=== PATIENT | female | born 1985 | race African-American/Black ===

== ENCOUNTER 2021-05-21 19:18 | Emergency (ER) | payer OTHER ==
[~2021-05-21] VITALS: Ht 160 cm; Wt 70.3 kg
[2021-05-21 19:38] VITALS: BP 125/84
[2021-05-21 19:59] LABS: BASOPHILS % (AUTO) 0.2 % (0.0-2.0); EOSINOPHILS # (AUTO) 0.1 K/uL (0-0.4); EOSINOPHILS % (AUTO) 1.1 % (0.0-4.0); HEMATOCRIT 35.5 % (36-48); HEMOGLOBIN 11.9 g/dL (12.0-16.0); LYMPHOCYTES # (AUTO) 2.2 K/uL (2.5-16.5); LYMPHOCYTES % (AUTO) 20.8 % (20.5-51.1); MEAN CORPUSCULAR HEMOGLOBIN 31 pg (27-31); MEAN CORPUSCULAR HGB CONC 34 g/dL (33-37); MEAN CORPUSCULAR VOLUME 93.2 fL (80-94); MONOCYTES # (AUTO) 0.5 K/uL (0.8-1.0); MONOCYTES % (AUTO) 4.7 % (1.7-9.3); NEUTROPHILS # (AUTO) 7.6 K/uL (1.8-7.7); NEUTROPHILS % (AUTO) 73.2 % (42.2-75.2); PLATELET COUNT (AUTO) 263 K/uL (140-450); RED BLOOD CELL COUNT(AUTO) 3.81 MIL/uL (4.20-5.40); RED CELL DISTRIBUTION WIDTH 13.3 % (11.6-13.7); WHITE BLOOD COUNT (AUTO) 10.4 K/uL (4.8-10.8)
--- NOTE | 2021-05-21 20:00 | NUR ---
MONROY EXAMINING PT IN TRIAGE, AB 0
--- NOTE | 2021-05-21 20:46 | NUR ---
PT GIVEN URINE CUP AND AMBULATED TO RESTROOM WITH STEADY GAIT
[2021-05-21 21:00] LABS: APPEARANCE,URINE CLEAR (CLEAR); BILIRUBIN,URINE NEGATIVE (NEGATIVE); BLOOD, URINE 1+ (NEGATIVE); COLOR,URINE YELLOW (YELLOW); LEUKOCYTE ESTERASE ,URINE NEGATIVE (NEGATIVE); NITRITE, URINE NEGATIVE (NEGATIVE); UGLUCOSE NEGATIVE (NEGATIVE)
[2021-05-21 21:10] LABS: RBC,URINE 0-5 /HPF (0-5); WBC,URINE 0-5 /HPF (0-5)
[2021-05-21 22:52] VITALS: BP 128/72
--- NOTE | 2021-05-21 22:56 | NUR ---
PATIENT DC HOME STABLE VITALS SIGNS IN NORMAL LIMITS ALL DC INSTRUCTION GAVE AND EXPLAINED //Jon RN
== END 2021-05-21 22:56 | disposition home or self-care (01) ==
LOC: MED 19:18
DX: O46.8X1 Other antepartum hemorrhage, first trimester (principal); Z3A.01 Less than 8 weeks gestation of pregnancy
CPT/HCPCS: 36415; 76817; 81001; 81025; 84702; 85025; 86900; 86901; 99284; Q0092

== ENCOUNTER 2021-05-31 16:40 | Emergency (ER) | payer OTHER ==
[~2021-05-31] VITALS: Ht 160 cm; Wt 72.6 kg
[2021-05-31 17:08] VITALS: BP 127/69
--- NOTE | 2021-05-31 19:02 | NUR ---
PT AMBULATED TO CHAIR C
[2021-05-31 19:42] LABS: APPEARANCE,URINE CLEAR (CLEAR); BILIRUBIN,URINE NEGATIVE (NEGATIVE); BLOOD, URINE NEGATIVE (NEGATIVE); COLOR,URINE YELLOW (YELLOW); LEUKOCYTE ESTERASE ,URINE TRACE (NEGATIVE); NITRITE, URINE NEGATIVE (NEGATIVE); PH,URINE 5.5 (5.0-9.0); UGLUCOSE NEGATIVE (NEGATIVE)
[2021-05-31 20:08] LABS: RBC,URINE NONE SEEN /HPF (0-5)
[2021-05-31 20:09] LABS: WBC,URINE 0-5 /HPF (0-5)
[2021-05-31] MEDS ORDERED: ACETAMINOPHEN 325 MG TAB PO ONE (21:05)
[2021-05-31] MEDS ORDERED: HYDROcodone/APAP 5/325 MG 1 TAB TAB PO ONE (21:05)
[2021-05-31] MEDS ORDERED: MORPHINE SULFATE 4 MG/ML SYR IM ONE (21:10)
[2021-05-31 21:16] LABS: BASOPHILS % (AUTO) 0.6 % (0.0-2.0); EOSINOPHILS % (AUTO) 0.5 % (0.0-4.0); HEMATOCRIT 35.8 % (36-48); LYMPHOCYTES # (AUTO) 0.2 K/uL (2.5-16.5); LYMPHOCYTES % (AUTO) 4.2 % (20.5-51.1); MEAN CORPUSCULAR HEMOGLOBIN 31 pg (27-31); MEAN CORPUSCULAR HGB CONC 34 g/dL (33-37); MEAN CORPUSCULAR VOLUME 92.9 fL (80-94); MONOCYTES # (AUTO) 0.7 K/uL (0.8-1.0); MONOCYTES % (AUTO) 13.7 % (1.7-9.3); NEUTROPHILS # (AUTO) 4.1 K/uL (1.8-7.7); PLATELET COUNT (AUTO) 196 K/uL (140-450); RED BLOOD CELL COUNT(AUTO) 3.86 MIL/uL (4.20-5.40); RED CELL DISTRIBUTION WIDTH 13.3 % (11.6-13.7)
[2021-05-31] MEDS ORDERED: ACET-8386 PO (21:48)
[2021-05-31] MEDS ORDERED: NITR100C7 PO (21:48)
--- NOTE | 2021-05-31 22:10 | NUR ---
d/c with VSS. d/c education given. opportunity to ask questions given and answered. rx of macrobid and tylenol given.
[2021-05-31 22:11] VITALS: BP 133/71
== END 2021-05-31 22:10 | disposition home or self-care (01) ==
LOC: MED 16:40
DX: O23.41 Unspecified infection of urinary tract in pregnancy, first trimester (principal); O26.891 Other specified pregnancy related conditions, first trimester; M54.50 Low back pain, unspecified; Z79.899 Other long term (current) drug therapy; Z3A.08 8 weeks gestation of pregnancy; Z88.6 Allergy status to analgesic agent
CPT/HCPCS: 36415; 76817; 81001; 81025; 84702; 85025; 86900; 86901; 96372; 99284; J2270

== ENCOUNTER 2022-03-19 19:18 | Emergency (ER) | payer OTHER ==
[~2022-03-19] VITALS: Ht 165.1 cm; Wt 86.2 kg
[~2022-03-19 19:18] MED LIST: ACET-8386 PO; NITR100C7 PO
[2022-03-19 20:33] VITALS: BP 132/88
[2022-03-19 22:21] LABS: BASOPHILS # (AUTO) 0.1 K/uL (0.00-0.22); BASOPHILS % (AUTO) 0.6 % (0.0-2.0); EOSINOPHILS # (AUTO) 0.2 K/uL (0-0.4); EOSINOPHILS % (AUTO) 2.4 % (0.0-4.0); HEMATOCRIT 35.3 % (36-48); HEMOGLOBIN 11.9 g/dL (12.0-16.0); LYMPHOCYTES # (AUTO) 1.9 K/uL (2.5-16.5); LYMPHOCYTES % (AUTO) 21.9 % (20.5-51.1); MEAN CORPUSCULAR HEMOGLOBIN 30 pg (27-31); MEAN CORPUSCULAR HGB CONC 34 g/dL (33-37); MEAN CORPUSCULAR VOLUME 89.8 fL (80-94); MONOCYTES # (AUTO) 0.6 K/uL (0.8-1.0); MONOCYTES % (AUTO) 6.6 % (1.7-9.3); NEUTROPHILS % (AUTO) 68.5 % (42.2-75.2); PLATELET COUNT (AUTO) 275 K/uL (140-450); RED BLOOD CELL COUNT(AUTO) 3.93 MIL/uL (4.20-5.40); RED CELL DISTRIBUTION WIDTH 14.4 % (11.6-13.7); WHITE BLOOD COUNT (AUTO) 8.8 K/uL (4.8-10.8)
[2022-03-19 22:55] LABS: APPEARANCE,URINE CLEAR (CLEAR); BILIRUBIN,URINE NEGATIVE (NEGATIVE); BLOOD, URINE 2+ (NEGATIVE); COLOR,URINE YELLOW (YELLOW); LEUKOCYTE ESTERASE ,URINE 1+ (NEGATIVE); NITRITE, URINE NEGATIVE (NEGATIVE); PH,URINE 6.5 (5.0-9.0); UGLUCOSE NEGATIVE (NEGATIVE)
[2022-03-19] MEDS ORDERED: NITR100C7 PO (23:29)
--- NOTE | 2022-03-20 00:10 | NUR ---
Dr. Ortiz explained results and treatment plans.
[2022-03-20 00:14] VITALS: BP 128/88
--- NOTE | 2022-03-20 00:14 | NUR ---
Patient discharged with v/s stable. Written and verbal after care instructions given and explained. Patient alert, oriented and verbalized understanding of instructions. Ambulatory with by parent. All questions addressed prior to discharge. ID band removed. Patient advised to follow up with PMD. Rx of Macrobid given. Patient educated on indication of medication including possible reaction and side effects. Opportunity to ask questions provided and answered.
== END 2022-03-20 00:14 | disposition home or self-care (01) ==
LOC: MED 19:18
DX: O23.41 Unspecified infection of urinary tract in pregnancy, first trimester (principal); O20.0 Threatened abortion; Z3A.01 Less than 8 weeks gestation of pregnancy; Z79.899 Other long term (current) drug therapy; Z88.6 Allergy status to analgesic agent
CPT/HCPCS: 36415; 76817; 81001; 81025; 84702; 85025; 86900; 86901; 87086; 99284; Q0092

== ENCOUNTER 2022-03-27 16:08 | Emergency (ER) | payer OTHER ==
[~2022-03-27] VITALS: Ht 165.1 cm; Wt 83.9 kg
[2022-03-27 16:24] VITALS: BP 121/87
--- NOTE | 2022-03-27 16:30 | NUR ---
PT AMB TO BED 7.
[2022-03-27 16:35] LABS: BASOPHILS # (AUTO) 0.1 K/uL (0.00-0.22); BASOPHILS % (AUTO) 0.5 % (0.0-2.0); EOSINOPHILS # (AUTO) 0.2 K/uL (0-0.4); EOSINOPHILS % (AUTO) 1.5 % (0.0-4.0); HEMATOCRIT 33.8 % (36-48); HEMOGLOBIN 11.4 g/dL (12.0-16.0); LYMPHOCYTES # (AUTO) 2.7 K/uL (2.5-16.5); LYMPHOCYTES % (AUTO) 22.6 % (20.5-51.1); MEAN CORPUSCULAR HEMOGLOBIN 30 pg (27-31); MEAN CORPUSCULAR HGB CONC 34 g/dL (33-37); MEAN CORPUSCULAR VOLUME 89.5 fL (80-94); MONOCYTES # (AUTO) 0.8 K/uL (0.8-1.0); NEUTROPHILS # (AUTO) 8.1 K/uL (1.8-7.7); NEUTROPHILS % (AUTO) 68.4 % (42.2-75.2); PLATELET COUNT (AUTO) 279 K/uL (140-450); RED BLOOD CELL COUNT(AUTO) 3.78 MIL/uL (4.20-5.40); RED CELL DISTRIBUTION WIDTH 14.1 % (11.6-13.7); WHITE BLOOD COUNT (AUTO) 11.9 K/uL (4.8-10.8)
--- NOTE | 2022-03-27 16:43 | NUR ---
Dr. Bowman evaluating patient at bedside.
--- NOTE | 2022-03-27 17:00 | NUR ---
36 y/o female bib self with c/o increased vaginal bleeding and abdominal cramping X 8 days. Patient has 10/10 cramping pain to abdomen. Patient was seen 8 days ago for same s/s. Patient is 6 weeks . Medical History: Right Ovarian Cyst ALLERGY: IBUPROFEN
--- NOTE | 2022-03-27 17:18 | NUR ---
Dr. Bowman re-evaluating patient at bedside.
[2022-03-27] MEDS ORDERED: ACET-8386 PO (17:26)
[2022-03-27] MEDS ORDERED: IBUP-2213 PO (17:26)
[2022-03-27 17:38] VITALS: BP 120/73
--- NOTE | 2022-03-27 17:38 | NUR ---
Patient discharged with v/s stable. Written and verbal after care instructions given. Patient alert, oriented and verbalized understanding of instructions. Ambulatory with steady gait. All questions addressed prior to discharge. ID band removed. Patient advised to follow up with PMD. Rx of Hydrocodone-Acetaminophen and Ibuprofen given. Opportunity to ask questions provided and answered.
== END 2022-03-27 17:38 | disposition home or self-care (01) ==
LOC: MED 16:08
DX: O03.9 Complete or unspecified spontaneous abortion without complication (principal)
CPT/HCPCS: 36415; 81002; 81025; 84702; 85025; 99283

== ENCOUNTER 2022-06-23 14:20 | Inpatient (IN) | payer OTHER ==
[~2022-06-23] VITALS: Ht 162.6 cm; Wt 87.7 kg
[~2022-06-23 14:20] MED LIST changes: -ACET-8386 PO; +ACET-8905 PO; +IBUP-2213 PO
[2022-06-23 14:27] VITALS: BP 140/79
[2022-06-23] MEDS ORDERED: NACL 0.9% 1,000 ML IV SCH (14:50)
[2022-06-23] MEDS ORDERED: KETOROLAC 30 MG/ML VIAL IVP ONE (14:50)
[2022-06-23] MEDS ORDERED: MORPHINE SULFATE 4 MG/ML SYR IVP ONE ×3 (14:55→18:05)
[2022-06-23] MEDS ORDERED: ONDANSETRON 4 MG/2 ML VIAL IVP ONE ×2 (15:00→16:40)
[2022-06-23 15:05] LABS: BASOPHILS % (AUTO) 0.3 % (0.0-2.0); EOSINOPHILS # (AUTO) 0.1 K/uL (0-0.4); EOSINOPHILS % (AUTO) 1.1 % (0.0-4.0); HEMATOCRIT 34.6 % (36-48); HEMOGLOBIN 11.4 g/dL (12.0-16.0); LYMPHOCYTES # (AUTO) 1.2 K/uL (2.5-16.5); LYMPHOCYTES % (AUTO) 9.2 % (20.5-51.1); MEAN CORPUSCULAR HEMOGLOBIN 29 pg (27-31); MEAN CORPUSCULAR HGB CONC 33 g/dL (33-37); MEAN CORPUSCULAR VOLUME 87.5 fL (80-94); MONOCYTES # (AUTO) 0.6 K/uL (0.8-1.0); MONOCYTES % (AUTO) 4.7 % (1.7-9.3); NEUTROPHILS % (AUTO) 84.7 % (42.2-75.2); PLATELET COUNT (AUTO) 263 K/uL (140-450); RED BLOOD CELL COUNT(AUTO) 3.95 MIL/uL (4.20-5.40); RED CELL DISTRIBUTION WIDTH 14.2 % (11.6-13.7)
[2022-06-23 15:23] LABS: BILIRUBIN,URINE NEGATIVE (NEGATIVE); BLOOD, URINE TRACE-L (NEGATIVE); COLOR,URINE YELLOW (YELLOW); LEUKOCYTE ESTERASE ,URINE TRACE (NEGATIVE); NITRITE, URINE NEGATIVE (NEGATIVE); UGLUCOSE NEGATIVE (NEGATIVE)
[2022-06-23 15:31] LABS: ALBUMIN 3.8 g/dL (3.4-5.0); ANION GAP 11.5 (8-16); CREATININE 0.9 mg/dL (0.6-1.3); POTASSIUM 3.5 mmol/L (3.5-5.1); TOTAL BILIRUBIN 0.4 mg/dL (0.0-1.0)
[2022-06-23 15:32] LABS: APPEARANCE,URINE HAZY (CLEAR)
[2022-06-23 15:52] LABS: RBC,URINE 0-5 /HPF (0-5)
[2022-06-23] MEDS ORDERED: cefTRIAXone 1,000 MG VIAL ONE (16:50)
[2022-06-23] MEDS ORDERED: ACETAMINOPHEN 325 MG TAB PO PRN (18:20)
[2022-06-23] MEDS ORDERED: HYDROcodone/APAP 5/325 MG 1 TAB TAB PO PRN (18:20)
[2022-06-23] MEDS ORDERED: ONDANSETRON 4 MG/2 ML VIAL IVP PRN (18:20)
[2022-06-23] MEDS: NACL 0.9% 1,000 ML IV SCH ×2 (19:43→22:40)
--- NOTE | 2022-06-23 21:24 | NUR ---
Report given to Yoli WALSH for transfer of care.
[2022-06-23 21:35] VITALS: BP 125/81
--- NOTE | 2022-06-23 21:35 | NUR ---
PATIENT ADMITTED FROM ED, CAME VIA WHEELCHAIR, IS AWAKE, ALERT AND ORIENTED X4, NO SIGNS OF DISTRESS NOTED, PATIENT ABLE TO TRANSFER SELF FROM WHEELCHAIR TO BED WITHOUT ASSIST. PATIENT HAS IV ACCESS SITE ON RIGHT AC G 20, PATENT AND INTACT. MRSA DONE @2150. PATIENT ADMITTED FOR RLQ PAIN, HAS HISTORY OF LEFT OVARIAN CYST, PATIENT ON NPO EXCEPTS MEDICATIONS, PATIENT WAS INFORMED, PATIENT VERBALIZED UNDERSTANDING. CALL LIGHT WITHIN REACH. BED IN LOW AND LOCKED POSITION.
[2022-06-23] MEDS: metroNIDAZOLE 500 MG/NS PREMIX 100 ML IV SCH (22:52)
[2022-06-24] MEDS: MORPHINE SULFATE 4 MG/ML SYR IVP PRN ×5 (00:02→22:45)
--- NOTE | 2022-06-24 00:02 | NUR ---
PRN MORPHINE GIVE FOR C/O 10/10 PAIN ON RIGHT LOWER QUADRANT( ABDOMEN). BP 112/67. WILL CONTINUE TO MONITOR THE PATIENT.
--- NOTE | 2022-06-24 01:55 | NUR ---
URINE SAMPLE COLLECTED FOR DRUG SCREEN, SENT TO LAB.
[2022-06-24 02:40] LABS: BARBITURATE, URINE NEGATIVE ng/ml (NEG <=200)
[2022-06-24 02:41] LABS: BENZODIAZEPINE, URINE NEGATIVE ng/mL (NEG <=200); CANNABINOID, URINE NEGATIVE ng/mL (NEG <=50); COCAINE, URINE POSITIVE ng/mL (NEG <=300); OPIATE, URINE POSITIVE ng/mL (NEG <=2000); PHENCYCLIDINE SCREEN,URINE NEGATIVE ng/mL (NEG <=25)
[2022-06-24 04:00] VITALS: BP 121/78
--- NOTE | 2022-06-24 04:22 | NUR ---
PRN MORPHINE GIVEN C/O 8/10PAIN ON RLQ, BP 121/78. CALL LIGHT WITHIN REACH.
[2022-06-24] MEDS: metroNIDAZOLE 500 MG/NS PREMIX 100 ML IV SCH ×3 (04:23→22:45)
--- NOTE | 2022-06-24 07:10 | NUR ---
RECEIVED REPORT FROM RADIOLOGY CLERK NURSE ASHA FOR CONTINUITY OF CARE. PT STABLE AT THIS TIME. Addendum: 06/24/22 at 1547 by Addie Alexander RN RADIOLOGY CLERK NURSE GARCIA
--- NOTE | 2022-06-24 07:17 | NUR ---
ENDORSED PATIENT TO DAY NURSE FOR CONTINUITY OF CARE. NEEDS MET THROUGHOUT THE SHIFT. PATIENT IN STABLE CONDITION.
[2022-06-24 07:37] LABS: BASOPHILS % (AUTO) 0.1 % (0.0-2.0); EOSINOPHILS # (AUTO) 0.1 K/uL (0-0.4); EOSINOPHILS % (AUTO) 0.6 % (0.0-4.0); HEMATOCRIT 31.1 % (36-48); HEMOGLOBIN 10.2 g/dL (12.0-16.0); LYMPHOCYTES # (AUTO) 2.1 K/uL (2.5-16.5); LYMPHOCYTES % (AUTO) 18.8 % (20.5-51.1); MEAN CORPUSCULAR HEMOGLOBIN 29 pg (27-31); MEAN CORPUSCULAR HGB CONC 33 g/dL (33-37); MEAN CORPUSCULAR VOLUME 88.2 fL (80-94); MONOCYTES # (AUTO) 0.6 K/uL (0.8-1.0); MONOCYTES % (AUTO) 5.4 % (1.7-9.3); NEUTROPHILS # (AUTO) 8.5 K/uL (1.8-7.7); NEUTROPHILS % (AUTO) 75.1 % (42.2-75.2); PLATELET COUNT (AUTO) 245 K/uL (140-450); RED BLOOD CELL COUNT(AUTO) 3.52 MIL/uL (4.20-5.40); RED CELL DISTRIBUTION WIDTH 13.9 % (11.6-13.7); WHITE BLOOD COUNT (AUTO) 11.3 K/uL (4.8-10.8)
[2022-06-24 08:00] VITALS: BP 95/62
[2022-06-24 08:03] LABS: ALBUMIN 3.4 g/dL (3.4-5.0); ANION GAP 7.2 (8-16); CARBON DIOXIDE 29.5 mmol/L (21-32); CREATININE 0.9 mg/dL (0.6-1.3); MAGNESIUM 1.7 mg/dL (1.8-2.4); POTASSIUM 3.7 mmol/L (3.5-5.1); TOTAL BILIRUBIN 0.4 mg/dL (0.0-1.0)
[2022-06-24] MEDS: DOCUSATE SODIUM 100 MG GELCAP PO SCH (08:51)
--- NOTE | 2022-06-24 09:28 | NUR ---
PATIENT HAS BEEN SCREENED AND CATEGORIZED LOW NUTRITION RISK. PATIENT WILL BE SEEN WITHIN 7 DAYS OF ADMISSION. 07/01/[address] REVIEW[address] BY ALLAN D[address]
[2022-06-24 12:02] LABS: PROTHROMBIN TIME 11.1 secs (10.8-13.4)
[2022-06-24 16:00] VITALS: BP 101/63
--- NOTE | 2022-06-24 19:20 | NUR ---
ENDORSED P TO NUCLEAR WORKER TECHNICIAN NURSE LIZET FOR CONTINUITY OF CARE. PT STABLE AT THIS TIME.
[2022-06-24] MEDS: NACL 0.9% 1,000 ML IV SCH (22:46)
--- NOTE | 2022-06-25 05:45 | NUR ---
PT'S MOTHER CALLED RE TIME SURGERY IS SCHEDULED AND WHAT SURGERY. EXPLAINED TO PT'S MOTHER CURRENT SITUATION AND SO PT'S MOTHER WILL CALL BACK LATER THIS A.M.
[2022-06-25] MEDS: metroNIDAZOLE 500 MG/NS PREMIX 100 ML IV SCH ×3 (06:43→22:06)
[2022-06-25 07:15] LABS: BASOPHILS % (AUTO) 0.4 % (0.0-2.0); EOSINOPHILS # (AUTO) 0.1 K/uL (0-0.4); EOSINOPHILS % (AUTO) 1.7 % (0.0-4.0); HEMATOCRIT 30.3 % (36-48); LYMPHOCYTES # (AUTO) 2.3 K/uL (2.5-16.5); LYMPHOCYTES % (AUTO) 37.6 % (20.5-51.1); MEAN CORPUSCULAR HEMOGLOBIN 29 pg (27-31); MEAN CORPUSCULAR HGB CONC 33 g/dL (33-37); MEAN CORPUSCULAR VOLUME 88.1 fL (80-94); MONOCYTES # (AUTO) 0.4 K/uL (0.8-1.0); MONOCYTES % (AUTO) 6.7 % (1.7-9.3); NEUTROPHILS # (AUTO) 3.3 K/uL (1.8-7.7); NEUTROPHILS % (AUTO) 53.6 % (42.2-75.2); PLATELET COUNT (AUTO) 248 K/uL (140-450); RED BLOOD CELL COUNT(AUTO) 3.44 MIL/uL (4.20-5.40); RED CELL DISTRIBUTION WIDTH 14.2 % (11.6-13.7); WHITE BLOOD COUNT (AUTO) 6.2 K/uL (4.8-10.8)
--- NOTE | 2022-06-25 07:15 | NUR ---
RECEIVED REPORT FROM TANK CAR MECHANIC NURSE FOR CONTINUITY OF CARE. PT STABLE AT THIS TIME.
[2022-06-25 07:43] LABS: ALBUMIN 3.3 g/dL (3.4-5.0); ANION GAP 10.2 (8-16); CARBON DIOXIDE 27.7 mmol/L (21-32); CREATININE 0.7 mg/dL (0.6-1.3); POTASSIUM 3.9 mmol/L (3.5-5.1); TOTAL BILIRUBIN 0.4 mg/dL (0.0-1.0)
[2022-06-25] MEDS: NACL 0.9% 1,000 ML IV SCH ×2 (07:50→22:05)
[2022-06-25 08:00] VITALS: BP 102/61
[2022-06-25] MEDS: MORPHINE SULFATE 4 MG/ML SYR IVP PRN ×3 (08:28→20:17)
[2022-06-25] MEDS: DOCUSATE SODIUM 100 MG GELCAP PO SCH (08:40)
--- NOTE | 2022-06-25 09:14 | NUR ---
DC PLANNING SW MET WITH PT AT BEDSIDE TO COMPLETE ASSESSMENT. PT ALERT AND ORIENTED AND ABLE TO PROVIDE ALL OF HER OWN INFORMATION. PT RESIDES IN A 2 STORY CONDO WITH HER CHILDREN AND FRIEND, AT THE ADDRESS LISTED ON FILE. PT IDENTIFIED SHANI INMAN, MOM, EMERGENCY CONTACT AND DECLINED TO ADD ADDITIONAL EC. PT REPORTS LAST VISIT WITH PCP IN FEB 21. SW POKE TO PT ABOUT IMPORTANCE OF FOLLOW UP CARE, PT RECEPTIVE AND PROVIDED SW WITH PERMISSION TO SCHEDULE FOLLOW UP WITH PCP UPON DC. PT DENIES TAKING MEDICATION AT THIS TIME AND REPORTS RECEIVING MEDICATION FROM [facility] [address] IN [place], WHEN NEEDED. PT REPORTS BEING INDEPENDENT IN ALL ACTIVITIES, NO USE OF DME REPORTED. PT COMPLETE ADL'S INDEPENDENTLY. PT REPORTS ADEQUATE FOOD IN THE HOME AND REPORTS RECEIVING ROUGHLY 700/MONTHLY IN [place]. PT DENIES MH/BURROUGHS HX. PT REPORTS DC PLAN IS TO RETURN HOME WITH MOM PROVIDING TRANSPORTATION, WHEN MEDICALLY STABLE. Addendum: 06/25/22 at 0916 by Joel PARKER Amended: Links added.
[2022-06-25 16:00] VITALS: BP 109/80
--- NOTE | 2022-06-25 19:00 | NUR ---
ENDORSED PT TO ALLERGY SPECIALIST NURSE FOR CONTINUITY OF CARE. PT IS STABLE.
--- NOTE | 2022-06-25 19:15 | NUR ---
RECEIVED PATIENT FROM AM NURSE FOR CONTINUITY OF CARE. PT IS STABLE
--- NOTE | 2022-06-26 | NUR ---
PATIENT ASLEEP, NOS/SX OF DISTRESS NOTED
[2022-06-26 04:00] VITALS: BP 106/77
[2022-06-26] MEDS: metroNIDAZOLE 500 MG/NS PREMIX 100 ML IV SCH ×2 (04:44→13:58)
--- NOTE | 2022-06-26 07:30 | NUR ---
RECEIVED REPORT FROM STORES CLERK NURSE, ASHA, FOR CONTINUITY OF CARE. PT IS AWAKE AT THIS TIME, BEING TAKEN DOWN FOR CT. PT IS ALERT AND ORIENTED X4, ABLE TO VERBALIZE NEEDS, ABLE TO FOLLOW COMMANDS. PT IS ON ROOM AIR. NO SIGNS OF DISTRESS NOTED. PT IS AMBULATORY, AND CONTINENT OF BOWEL AND BLADDER. NO COMPLAINTS OF PAIN OR DISCOMFORT AT THIS TIME. CALL LIGHT WITHIN REACH. ALL SAFETY MEASURES IN PLACE. WILL CONTINUE TO MONITOR.
[2022-06-26 07:33] LABS: ALBUMIN 3.2 g/dL (3.4-5.0); ANION GAP 10.7 (8-16); CARBON DIOXIDE 26.1 mmol/L (21-32); CREATININE 0.8 mg/dL (0.6-1.3); POTASSIUM 3.8 mmol/L (3.5-5.1); TOTAL BILIRUBIN 0.3 mg/dL (0.0-1.0)
[2022-06-26 07:40] LABS: BASOPHILS % (AUTO) 0.8 % (0.0-2.0); EOSINOPHILS # (AUTO) 0.1 K/uL (0-0.4); EOSINOPHILS % (AUTO) 2.1 % (0.0-4.0); HEMATOCRIT 29.3 % (36-48); HEMOGLOBIN 9.9 g/dL (12.0-16.0); MEAN CORPUSCULAR HEMOGLOBIN 29 pg (27-31); MEAN CORPUSCULAR HGB CONC 34 g/dL (33-37); MEAN CORPUSCULAR VOLUME 86.9 fL (80-94); MONOCYTES # (AUTO) 0.5 K/uL (0.8-1.0); MONOCYTES % (AUTO) 7.6 % (1.7-9.3); NEUTROPHILS # (AUTO) 3.6 K/uL (1.8-7.7); NEUTROPHILS % (AUTO) 57.5 % (42.2-75.2); PLATELET COUNT (AUTO) 265 K/uL (140-450); RED BLOOD CELL COUNT(AUTO) 3.37 MIL/uL (4.20-5.40); WHITE BLOOD COUNT (AUTO) 6.2 K/uL (4.8-10.8)
[2022-06-26 08:00] VITALS: BP 136/87
[2022-06-26] MEDS: DOCUSATE SODIUM 100 MG GELCAP PO SCH (08:42)
--- NOTE | 2022-06-26 08:45 | NUR ---
ADMINISTERED ALL SCHEDULED MEDICATIONS. EDUCATED PT ON MEDS ADMINISTERED. PT TOLERATED WELL.
[2022-06-26] MEDS: NACL 0.9% 1,000 ML IV SCH (08:46)
--- NOTE | 2022-06-26 11:15 | NUR ---
PT AMBULATED TO REST ROOM. PT TOLERATED WELL.
--- NOTE | 2022-06-26 12:20 | NUR ---
PER DR MOMIN, NO SURGERY. NEW ORDERS TO ADVANCE DIET AND POSSIBLE DISCHARGE.
[2022-06-26] MEDS ORDERED: AMOX-999 PO (14:47)
[2022-06-26 14:58] VITALS: BP 136/87
--- NOTE | 2022-06-26 15:10 | NUR ---
PT TOLERATED DIET WELL, PT ALSO HAD FAMILY BRING HER A SNACK. NO COMPLAINTS OF PAIN OR DISCOMFORT. PT TOLERATED WELL.
--- NOTE | 2022-06-26 16:40 | NUR ---
WENT OVER DISCHARGE PAPERWORK. ANSWERED ALL QUESTIONS. PT SIGNED ALL PAPERWORK. IV REMOVED. CATHETER INTACT. PT AMBULATED OFF UNIT. PT DISCHARGED HOME. ALL BELONGINGS TAKEN UPON DISCHARGE.
== END 2022-06-26 16:40 | disposition home or self-care (01) | DRG 251 ==
LOC: MED 14:20 → OBSVTOIN 18:22 → MTU 18:22
PROVIDERS: ADMIT Student in an Organized Health Care Education/Training Program; ATTEND Student in an Organized Health Care Education/Training Program
DX: R10.31 Right lower quadrant pain (principal); D72.829 Elevated white blood cell count, unspecified; N83.202 Unspecified ovarian cyst, left side; Z20.822 Contact with and (suspected) exposure to COVID-19; Z88.8 Allergy status to other drugs, medicaments and biological substances
CPT/HCPCS: 36415; 76856; 80053; 80305; 81001; 82150; 83690; 83735; 84703; 85025; 85610; 85730; 87081; 87086; 96374; 96375; 96376; 99285; J0696; J1644; J2270; J2405; J3490; J7060; Q0092; Q9967

== ENCOUNTER 2023-10-14 13:07 | Emergency (ER) | payer OTHER ==
[~2023-10-14] VITALS: Ht 165.1 cm; Wt 90.7 kg
[~2023-10-14 13:07] MED LIST changes: -ACET-8905 PO; +AMOX-999 PO; -IBUP-2213 PO; -NITR100C7 PO
[2023-10-14 13:20] VITALS: BP 135/92; PULSE 92; RESP 18; TEMP 98.9; O2SAT 100
== END 2023-10-14 15:46 | disposition left against medical advice (07) ==
LOC: MED 13:07
DX: N93.9 Abnormal uterine and vaginal bleeding, unspecified (principal); H57.89 Other specified disorders of eye and adnexa; Z53.21 Procedure and treatment not carried out due to patient leaving prior to being seen by health care provider